=== PATIENT | female | born 1970 | race Caucasian/White ===

== ENCOUNTER → 2020-06-06 | Outpatient (CLI) | payer OTHER | LOC: US 05-27 09:15 | DX: R79.89 Other specified abnormal findings of blood chemistry (principal); K76.0 Fatty (change of) liver, not elsewhere classified | CPT/HCPCS: 76700 ==

== ENCOUNTER 2020-12-12 12:53 | Emergency (ER) | payer OTHER ==
[~2020-12-12] VITALS: Ht 165.1 cm; Wt 72.6 kg
== END 2020-12-12 15:51 | disposition home or self-care (01) ==
LOC: ER1 12:53 → EDSTATUS 12:53 → ER1 15:51
DX: U07.1 COVID-19 (principal); Z23 Encounter for immunization; E11.9 Type 2 diabetes mellitus without complications; F17.200 Nicotine dependence, unspecified, uncomplicated
CPT/HCPCS: 99283; M0243

== ENCOUNTER → 2021-03-17 | Outpatient (CLI) | payer OTHER | LOC: KOH-I 08:51 | DX: M54.9 Dorsalgia, unspecified (principal); M47.816 Spondylosis without myelopathy or radiculopathy, lumbar region | CPT/HCPCS: 72100 ==

== ENCOUNTER → 2021-03-17 | Outpatient (CLI) | payer OTHER | LOC: KOH-I 02-20 09:00 | DX: K76.0 Fatty (change of) liver, not elsewhere classified (principal) | CPT/HCPCS: 76700 ==

== ENCOUNTER 2021-06-10 09:53 | Inpatient (IN) | payer OTHER ==
[~2021-06-10] VITALS: Ht 165.1 cm; Wt 59.9 kg
[2021-06-10 10:40] LABS: HEMOGLOBIN 16.1 gm/dl (12.3-15.3); RED BLOOD COUNT 5.67 M/UL (4.00-5.10); WHITE BLOOD COUNT 9.2 K/UL (4.5-11.0)
[2021-06-10 11:05] LABS: BUN/CREATININE RATIO 18 (0-10)
[2021-06-10] MEDS ORDERED: METFORMIN HCL500 MG PO (12:30)
[2021-06-10] MEDS ORDERED: JARDIANCE25 MG PO (12:32)
[2021-06-10] MEDS ORDERED: BASAGLAR K100 UNIT/1 SQ (12:32)
[2021-06-10] MEDS ORDERED: JANUVIA100 MG PO (12:33)
[2021-06-10] MEDS ORDERED: GLIMEPIRIDE4 MG PO (12:33)
[2021-06-10] MEDS ORDERED: CYANOCOBAL1000 MCG/1 IM (12:34)
[2021-06-10] MEDS ORDERED: VITAMIN B-121000 MCG PO (12:35)
[2021-06-10] MEDS ORDERED: WOMEN'S 50 PLU1 EACH PO (12:36)
[2021-06-10] MEDS ORDERED: OMEPRAZOLE20 MG PO (12:36)
[2021-06-10] MEDS ORDERED: TYLENOL325 MG PO (12:37)
[2021-06-10 16:47] LABS: BUN/CREATININE RATIO 14 (0-10)
[2021-06-10 20:18] LABS: BUN/CREATININE RATIO 11 (0-10)
[2021-06-11 00:15] LABS: BUN/CREATININE RATIO 8 (0-10)
[2021-06-11 06:06] LABS: HEMOGLOBIN 12.8 gm/dl (12.3-15.3); RED BLOOD COUNT 4.56 M/UL (4.00-5.10)
[2021-06-11 06:38] LABS: BUN/CREATININE RATIO 8 (0-10)
[2021-06-11 13:48] LABS: BUN/CREATININE RATIO 6 (0-10)
[2021-06-11 17:35] LABS: BUN/CREATININE RATIO 6 (0-10)
[2021-06-12 04:08] LABS: BUN/CREATININE RATIO 8 (0-10)
[2021-06-12] MEDS ORDERED: BASAGLAR K100 UNIT/1 SQ (08:29)
[2021-06-12] MEDS ORDERED: HUMALOG 10100 UNITS/ SC (08:30)
== END 2021-06-12 10:23 | disposition home or self-care (01) | DRG 639 ==
LOC: ER1 09:53 → CDU 12:00 → CCU 12:58
PROVIDERS: Physician Assistant; Physician Assistant Medical; ADMIT Internal Medicine
DX: E11.10 Type 2 diabetes mellitus with ketoacidosis without coma (principal); Z20.822 Contact with and (suspected) exposure to COVID-19; F17.210 Nicotine dependence, cigarettes, uncomplicated; E86.0 Dehydration; E87.6 Hypokalemia; E83.42 Hypomagnesemia; Z79.4 Long term (current) use of insulin; Z90.49 Acquired absence of other specified parts of digestive tract; Z90.710 Acquired absence of both cervix and uterus; Z83.3 Family history of diabetes mellitus; Z80.8 Family history of malignant neoplasm of other organs or systems
CPT/HCPCS: 36415; 36600; 71045; 80048; 80053; 81001; 82009; 82550; 82553; 82803; 82962; 83036; 83690; 83735; 84484; 85025; 96374; 96375; 99285; J2405; J7030; U0002

== ENCOUNTER → 2021-07-21 | Outpatient (CLI) | payer OTHER ==
[~2021-07-21] MED LIST: BASAGLAR K100 UNIT/1 SQ; CYANOCOBAL1000 MCG/1 IM; GLIMEPIRIDE4 MG PO; HUMALOG 10100 UNITS/ SC; JANUVIA100 MG PO; JARDIANCE25 MG PO; METFORMIN HCL500 MG PO; OMEPRAZOLE20 MG PO; TYLENOL325 MG PO; VITAMIN B-121000 MCG PO; WOMEN'S 50 PLU1 EACH PO
== END ==
LOC: KOH-I 15:23
DX: R59.0 Localized enlarged lymph nodes (principal); R93.89 Abnormal findings on diagnostic imaging of other specified body structures
CPT/HCPCS: 76536

== ENCOUNTER → 2021-08-24 | Outpatient (CLI) | payer OTHER | LOC: RT 11:04 | DX: C73 Malignant neoplasm of thyroid gland (principal) | CPT/HCPCS: 71046; 93005 ==